=== PATIENT | male | born 1960 | race Caucasian/White ===

== ENCOUNTER 2020-08-01 10:24 | Outpatient (CLI) | payer MEDICARE, SELFPAY ==
--- NOTE | 2020-08-01 10:32 | XR_ITS ---
WS: [id number] SCREENING DEXA SCAN [employer] CLINICAL INFORMATION: OSTEOPOROSIS COMPARISON: August 17, 2018 FINDINGS: The L1-L4 bone mineral density measures 0.946 g/cm2. This corresponds to a T score score of -2.3 and Z score of -2.1. Left femoral neck bone mineral density measures 1.054 g/cm2. This corresponds to a T score of -0.3 an d Z score of 0.1. Right femoral neck bone mineral density measures 0.888 g/cm2. This corresponds to a T score -1.5of an d Z score of -1.1. Mean femoral neck bone mineral density measures 0.971 g/cm2. This corresponds to a T score of -0.9 an d Z score of -0.5. XR/XR DEXA axial skeleton* [id number] IMPRESSION: Osteopenia Patient's FRAX calculated 10 year probability for major osteoporotic fracture i s 9.4 % and osteoporotic hip fracture is 0.9%.
== END 2020-08-01 10:25 | disposition home or self-care (01) ==
LOC: RADWPI 10:28
PROVIDERS: PCP Physician Assistant; Visit Provider Physician Assistant
DX: M81.0 Age-related osteoporosis without current pathological fracture (principal); M85.88 Other specified disorders of bone density and structure, other site
CPT/HCPCS: 77080

== ENCOUNTER 2021-01-08 09:00 | Outpatient (CLI) | payer MEDICARE, SELFPAY ==
[2021-01-08 09:09] VITALS: BP 143/81; PULSE 79; RESP 18; TEMP 36.7; O2SAT 98
[2021-01-08] MEDS: denosumab 60 mg SDV SUBCUT (09:17)
[2021-01-08 09:29] VITALS: BP 150/88; PULSE 78; RESP 18; TEMP 37; O2SAT 96
== END 2021-01-08 09:01 | disposition home or self-care (01) ==
LOC: ONCMED 09:03
PROVIDERS: PCP Physician Assistant; Referring Provider Physician Assistant; Visit Provider Physician Assistant
DX: M81.0 Age-related osteoporosis without current pathological fracture (principal)
CPT/HCPCS: 96372; J0897

== ENCOUNTER 2021-07-24 11:38 | Outpatient (CLI) | payer MEDICARE, SELFPAY ==
[2021-07-24 11:51] VITALS: BP 151/80; PULSE 95; RESP 18; TEMP 36.7; O2SAT 98
[2021-07-24] MEDS: denosumab 60 mg SDV SUBCUT (11:55)
[2021-07-24 11:59] VITALS: BP 136/75; PULSE 84; RESP 18; TEMP 37.1; O2SAT 98
== END 2021-07-24 11:39 | disposition home or self-care (01) ==
PROVIDERS: PCP Physician Assistant; Referring Provider Physician Assistant; Visit Provider Family Medicine
DX: M81.0 Age-related osteoporosis without current pathological fracture (principal)
CPT/HCPCS: 96372; J0897

== ENCOUNTER 2022-01-28 13:24 | Outpatient (CLI) | payer MEDICARE, SELFPAY ==
[2022-01-28 13:32] VITALS: BP 117/68; PULSE 78; RESP 18; TEMP 36.9; O2SAT 97
[2022-01-28] MEDS: denosumab 60 mg SDV SUBCUT (13:42)
[2022-01-28 13:47] VITALS: BP 123/76; PULSE 75; RESP 18; TEMP 36.9; O2SAT 97
== END 2022-01-28 13:25 | disposition home or self-care (01) ==
LOC: ONCMED 13:25
PROVIDERS: PCP Physician Assistant; Visit Provider Physician Assistant
DX: M81.0 Age-related osteoporosis without current pathological fracture (principal)
CPT/HCPCS: 96372; J0897

== ENCOUNTER → 2022-07-21 14:55 | Outpatient (BNVA) | payer MEDICARE, SELFPAY | PROVIDERS: PCP Physician Assistant; Referring Provider Physician Assistant; Visit Provider Student in an Organized Health Care Education/Training Program | DX: M18.11 Unilateral primary osteoarthritis of first carpometacarpal joint, right hand (principal); M19.131 Post-traumatic osteoarthritis, right wrist | CPT/HCPCS: 73110 ==

== ENCOUNTER 2022-07-21 16:14 | Outpatient (CLI) | payer MEDICARE, SELFPAY | END 2022-07-21 16:15 | disposition home or self-care (01) | LOC: SPT 16:15 | PROVIDERS: PCP Physician Assistant; Visit Provider Student in an Organized Health Care Education/Training Program | DX: Z46.89 Encounter for fitting and adjustment of other specified devices (principal); M18.11 Unilateral primary osteoarthritis of first carpometacarpal joint, right hand | CPT/HCPCS: 20600; 97760; 99204; J3301; L3924 ==

== ENCOUNTER → 2022-11-07 09:14 | Outpatient (BNVA) | payer MEDICARE, SELFPAY | PROVIDERS: PCP Physician Assistant; Visit Provider Student in an Organized Health Care Education/Training Program | DX: M18.11 Unilateral primary osteoarthritis of first carpometacarpal joint, right hand (principal); M19.131 Post-traumatic osteoarthritis, right wrist | CPT/HCPCS: 99213 ==

== ENCOUNTER 2024-02-26 14:44 | Outpatient (CLI) | payer MEDICARE, SELFPAY ==
--- NOTE | 2024-02-26 14:52 | XR_ITS ---
WS: [id number] DEXA (DUAL ENERGY X-RAY ABSORPTIOMETRY) Bone mineral density was performed using a [employer] machine. HISTORY: OSTEOGENESIS IMPERFECTA COMPARISON: 08/01/2020 Lumbar spine BMD (L1-L4): 1.043 g/cm2 T score: -1.5 Z score: -1.2 Total hip BMD: Left: 0.947 g/cm2. T score: -1.1 Z score: -0.6 Right: 0.728 g/cm2. T score: -2.6 Z score: -2.2 10 year probability of a major osteoporotic fracture is 11.8%. Compared to the prior study from 08/01/2020. Lumbar spine bone mineral density has increased by 10.3%. Bilateral hips bone mineral density has decreased by 13.7%. XR/XR DEXA axial skeleton* [id number] IMPRESSION: OSTEOPOROSIS based upon the WHO classification for females. Significant decrease in bone mineral density within the hips since the prior st udy. Significant increase in bone mineral density within the lumbar spine since the prior study. This may be a falsely elevated bone mineral density to the due to the increasing sclerosis.
== END 2024-02-26 14:45 | disposition home or self-care (01) ==
LOC: RAD 14:47
PROVIDERS: PCP Physician Assistant; Visit Provider Physician Assistant
DX: Z13.820 Encounter for screening for osteoporosis (principal); Q78.0 Osteogenesis imperfecta; M81.0 Age-related osteoporosis without current pathological fracture
CPT/HCPCS: 77080